=== PATIENT | female | born 1950 | race Caucasian/White ===

== ENCOUNTER 2021-02-25 10:22 | Outpatient (REF) | payer SELFPAY ==
--- NOTE | 2021-02-25 10:49 | MHC.AU.P13 ---
Addendum entered by Bere Okeefe 02/25/21 10:51: Hearing Instrument Problem Date of Visit: 02/25/21 Right Ear: Wet End Supervisor: Phonak Model: Audeo Smart V Serial Number: [id number] Repair Warranty: Loss and Damage Warranty: Battery Size: 312 [employer]ed [employer] Boards Solder Leveler: 2xS Type of Mold: SLIM TIP Type of Wax Guard: CERUSTOP Dispensed By: [facility] Date of Fittin04/09/2010 Left Ear: Wet End Supervisor: Phonak Model: A[employer]o Smart V Serial Number: [id number] Repair Warranty: Loss and Damage Warranty: Battery Size: 312 Printed Circuit Boards Solder Leveler: 2xS Type of Mold: SLIM TIP Type of Wax Guard: CERUSTOP Dispensed By: [facility] Date of Fittin04/09/2010 Follow-Up Summary: Hearing aids dropped off for cleaning - right not working. Cleaned both aids, slim tips, replaced batteries and wax guards - now amplifying. Recommend considering new aids as they are now almost 11 years old. Signature: Provider: NATALYA KnowlesHIS Original Note: Hearing Instrument Follow-Up- Binaural Date of Visit: 02/25/21 Right Ear: Wet End Supervisor: Phonak Model: Audeo Smart V Serial Number: [id number] Repair Warranty: Loss and Damage Warranty: Battery Size: 312 Printed [employer] Boards Solder Leveler: 2xS Type of Mold: SLIM TIP Type of Wax Guard: CERUSTOP Dispensed By: [facility] Date of Fittin04/09/2010 Left Ear: Wet End Supervisor: Phonak Model: Audeo Smart V Serial Number: [id number] Repair Warranty: Loss and Damage Warranty: Battery Size: 312 Printed Circuit Boards Solder Leveler: 2xS Type of Mold: SLIM TIP Type of Wax Guard: CERUSTOP Dispensed By: [facility] Date of Fittin04/09/2010 Follow-Up Summary: Hearing aids dropped off for cleaning - right not working. Cleaned both aids, slim tips, replaced batteries and wax guards - now amplifying. Recommend considering new aids as they are now almost 11 years old. Signature: Provider: NATALYA KnowlesHIS
== END 2021-02-25 10:23 | disposition home or self-care (01) ==
LOC: HO.HAP 10:22
PROVIDERS: Visit Provider Internal Medicine
DX: Z13.89 Encounter for screening for other disorder (principal)

== ENCOUNTER 2021-02-26 10:20 | Outpatient (REF) | payer SELFPAY | END 2021-02-26 10:21 | disposition home or self-care (01) | LOC: HO.HAP 10:20 | PROVIDERS: Visit Provider Internal Medicine | DX: H91.90 Unspecified hearing loss, unspecified ear (principal) | CPT/HCPCS: 99499 ==